=== PATIENT | male | born 1995 | race Caucasian/White ===

== ENCOUNTER 2017-03-18 18:00 | Emergency (ER) | payer OTHER ==
[~2017-03-18] VITALS: Ht 188 cm; Wt 61.5 kg
[2017-03-18 20:04] LABS: INFLUENZA TYPE A NEGATIVE FOR TYPE A (NEGATIVE); INFLUENZA TYPE B POSITIVE FOR TYPE B (NEGATIVE)
[2017-03-18] MEDS ORDERED: ACETAMINOPHEN 500 MG TABLET PO ONE (20:15)
[2017-03-18 20:37] VITALS: BP 117/69
== END 2017-03-18 20:42 | disposition home or self-care (01) ==
LOC: EMS 18:01
DX: J11.1 Influenza due to unidentified influenza virus with other respiratory manifestations (principal)
CPT/HCPCS: 71046; 87804; 99285

== ENCOUNTER 2019-01-11 14:02 | Emergency (ER) | payer OTHER ==
[~2019-01-11] VITALS: Ht 188 cm; Wt 77.3 kg
[2019-01-11 15:42] VITALS: BP 120/80
== END 2019-01-11 16:08 | disposition home or self-care (01) ==
LOC: EMS 14:11
DX: M79.675 Pain in left toe(s) (principal)